=== PATIENT | male | born 1940 | race African-American/Black ===

== ENCOUNTER 2017-05-14 21:06 | Inpatient (IN) | payer OTHER ==
[~2017-05-14] VITALS: Ht 186.7 cm; Wt 81.6 kg
[2017-05-14] MEDS ORDERED: SODIUM CHLORIDE 0.9% 1,000 ML IV ONE (21:37)
[2017-05-14] MEDS ORDERED: ASPIRIN 81MG TABLET PO ONE (21:45)
[2017-05-14] MEDS ORDERED: DILTIAZEM HCL 5MG/ML 5ML VIAL IV ONE ×2 (22:30→23:45)
[2017-05-14] MEDS ORDERED: DILTIAZEM HCL 125 MG in DEXT 5% WATER 100 ML IV ONE (22:30)
[2017-05-14 22:45] LABS: *AMPHETAMINES SCREEN URINE NEGATIVE (NEGATIVE); *BARBITURATES SCREEN URINE NEGATIVE (NEGATIVE); *BENZODIAZEPINES SCREEN URINE NEGATIVE (NEGATIVE); *COCAINE SCREEN URINE NEGATIVE (NEGATIVE); CANNABINOID URINE SCREEN NEGATIVE (NEGATIVE); METHADONE URINE SCREEN NEGATIVE (NEGATIVE); OPIATES URINE SCREEN NEGATIVE (NEGATIVE); PHENCYCLIDINE URINE SCREEN NEGATIVE (NEGATIVE)
[2017-05-14] MEDS ORDERED: DILTIAZEM HCL 125 MG in SODIUM CHLORIDE 0.9% 100 ML IV NR (23:00)
[2017-05-14 23:19] LABS: BASOPHILS % 0.7 % (0.0-2.0); EOSINOPHILS % 2.4 % (0.0-5.0); HEMATOCRIT. 39.3 % (42.0-52.0); HEMOGLOBIN. 13.1 g/dL (14.0-18.0); LYMPHOCYTES % 31.1 % (20.0-50.0); MEAN CORPUSCULAR HEMOGLOBIN 29.4 pg (28.0-32.0); MEAN CORPUSCULAR VOLUME 88.4 fL (80.0-94.0); MONOCYTES % 14.8 % (2.0-8.0); PLATELET 139 x1000/uL (130-400); RED BLOOD CELL COUNT 4.44 mill/uL (4.7-6.1); RED CELL DISTRIBUTION WIDTH 14.7 % (11.6-14.6)
[2017-05-14 23:27] LABS: INR 1.1; PROTHROMBIN TIME 11.5 sec (9.4-11.6)
[2017-05-14 23:35] LABS: CARBON DIOXIDE 25 mEq/L (21-32); CHLORIDE 106 mEq/L (98-107); ETHANOL BLOOD < 10 mg/dL; TROPONIN I 0.02 ng/mL (0.00-0.04)
[2017-05-15] VITALS (24 sets, daily range): BP systolic 111–158; BP diastolic 44–94
[2017-05-15] MEDS ORDERED: SODIUM CHLORIDE 0.9% 1,000 ML IV ONE (00:41)
[2017-05-15 05:47] LABS: HEMATOCRIT. 37.7 % (42.0-52.0); HEMOGLOBIN. 12.5 g/dL (14.0-18.0); MEAN CORPUSCULAR HEMOGLOBIN 29.5 pg (28.0-32.0); MEAN CORPUSCULAR VOLUME 89.4 fL (80.0-94.0); MEAN PLATELET VOLUME 8.9 fl (7.4-10.4); PLATELET 133 x1000/uL (130-400); RED BLOOD CELL COUNT 4.22 mill/uL (4.7-6.1); RED CELL DISTRIBUTION WIDTH 14.5 % (11.6-14.6)
[2017-05-15 06:26] LABS: PHOSPHORUS 2.4 mg/dL (2.5-4.9); TROPONIN I 0.03 ng/mL (0.00-0.04)
[2017-05-15 08:20] LABS: KETONES URINE NEGATIVE (NEGATIVE); LEUKOCYTE ESTERASE URINE NEGATIVE (NEGATIVE); NITRITE URINE NEGATIVE (NEGATIVE); OCCULT BLOOD URINE NEGATIVE (NEGATIVE); PROTEIN URINE NEGATIVE (NEGATIVE); SPECIFIC GRAVITY URINE 1.011 (1.005-1.030); UROBILINOGEN URINE 0.2 E.U./dL (0.2-1.0)
[2017-05-15 08:32] LABS: CLARITY URINE CLEAR (CLEAR); COLOR URINE YELLOW (YELLOW)
[2017-05-15] MEDS: CARVEDILOL 3.125 MG TABLET PO SCH ×2 (10:36→21:39)
[2017-05-15] MEDS: ASPIRIN 81MG TABLET PO SCH (10:36)
[2017-05-15] MEDS: SODIUM CHLORIDE 0.9% 1,000 ML IV SCH ×2 (10:36→20:50)
[2017-05-15 11:15] LABS: T4 FREE 0.72 ng/dL (0.76-1.46)
[2017-05-15] MEDS ORDERED: NOREPINEPHRINE 16 MG in DEXT 5% WATER 234 ML IV PRN (11:15)
[2017-05-15] MEDS ORDERED: PHENYLEPHRINE 40 MG in DEXT 5% WATER 500 ML IV PRN (11:15)
[2017-05-15] MEDS ORDERED: IPRATROPIUM/ALBUTEROL 0.5-3(2.5)MG/3ML NEB HHN PRN (11:30)
[2017-05-15 11:39] LABS: PLATELET ESTIMATE NORMAL
[2017-05-15] MEDS: BUDESONIDE 0.5MG/2ML NEB HHN SCH ×2 (15:09→20:34)
[2017-05-15] MEDS: IPRATROPIUM/ALBUTEROL 0.5-3(2.5)MG/3ML NEB HHN SCH ×2 (15:09→20:34)
[2017-05-15 15:46] LABS: CREATINE KINASE MB FRACTION 1.3 ng/mL (0.5-3.6)
[2017-05-15] MEDS ORDERED: LIP40 PO (18:34)
[2017-05-15] MEDS ORDERED: ALBU05 NEB (18:34)
[2017-05-15] MEDS ORDERED: TIOT18CA3 INH (18:34)
[2017-05-15] MEDS ORDERED: FLUT1DIS3 IH (18:34)
[2017-05-16] VITALS (12 sets, daily range): BP systolic 130–154; BP diastolic 60–91
[2017-05-16 00:20] LABS: CREATINE KINASE MB FRACTION 1.1 ng/mL (0.5-3.6)
[2017-05-16] MEDS: IPRATROPIUM/ALBUTEROL 0.5-3(2.5)MG/3ML NEB HHN SCH ×2 (00:35→08:21)
[2017-05-16 06:06] LABS: CREATINE KINASE MB FRACTION 1.3 ng/mL (0.5-3.6)
[2017-05-16] MEDS: ASPIRIN 81MG TABLET PO SCH (08:01)
[2017-05-16] MEDS: CARVEDILOL 3.125 MG TABLET PO SCH (08:01)
[2017-05-16] MEDS: BUDESONIDE 0.5MG/2ML NEB HHN SCH (08:21)
== END 2017-05-16 10:45 | disposition home or self-care (01) | DRG 73 ==
LOC: ER 21:30 → CVICU 23:38 → EDBEDREQ 23:41 → EDBEDREQTM 23:41 → EDBEDREQSVC 23:44 → ENRESERV 05-15 → EDBEDREQ 05-15 00:33 → ER 05-15 01:53
PROVIDERS: ADMIT Internal Medicine; ATTEND Internal Medicine
DX: G90.8 Other disorders of autonomic nervous system (principal); G93.41 Metabolic encephalopathy; E86.0 Dehydration; I50.9 Heart failure, unspecified; I48.91 Unspecified atrial fibrillation; I11.0 Hypertensive heart disease with heart failure; I47.1 Supraventricular tachycardia; J44.9 Chronic obstructive pulmonary disease, unspecified; I25.10 Atherosclerotic heart disease of native coronary artery without angina pectoris; E78.5 Hyperlipidemia, unspecified; Z87.891 Personal history of nicotine dependence
CPT/HCPCS: 36415; 70450; 71010; 74176; 80048; 80053; 80061; 80305; 81003; 82550; 82553; 82962; 83036; 83735; 83880; 84100; 84439; 84443; 84484; 85025; 85379; 85610; 93005; 93970; 96361; 96374; 96375; 97162; 99291; G0482; J3490; J7030; J7050; J7060; J7620; J7626

== ENCOUNTER 2019-02-03 14:57 | Emergency (ER) | payer MEDICARE, OTHER ==
[~2019-02-03] VITALS: Ht 172.7 cm; Wt 78.0 kg
[~2019-02-03 14:57] MED LIST: ALBU05 NEB; FLUT1DIS3 IH; LIP40 PO; TIOT18CA3 INH
[2019-02-03 16:59] LABS: CHLORIDE 102 mEq/L (98-107)
[2019-02-03 17:01] LABS: BASOPHILS % 1.1 % (0.0-2.0); EOSINOPHILS % 0.3 % (0.0-5.0); HEMATOCRIT. 42.4 % (42.0-52.0); HEMOGLOBIN. 14.4 g/dL (14.0-18.0); LYMPHOCYTES % 44.2 % (20.0-50.0); MEAN CORPUSCULAR VOLUME 88.7 fL (80.0-94.0); MEAN PLATELET VOLUME 8.2 fl (7.4-10.4); MONOCYTES % 10.9 % (2.0-8.0); NEUTROPHILS % 43.5 % (40.0-76.0); PLATELET 171 x1000/uL (130-400); RED BLOOD CELL COUNT 4.78 mill/uL (4.7-6.1)
[2019-02-03 22:47] VITALS: BP 145/70
== END 2019-02-03 22:48 | disposition home or self-care (01) ==
LOC: ER 15:42
DX: J44.9 Chronic obstructive pulmonary disease, unspecified (principal); I10 Essential (primary) hypertension; E78.5 Hyperlipidemia, unspecified; Z79.899 Other long term (current) drug therapy
CPT/HCPCS: 36415; 71045; 83880; 84484; 85379; 93005; 99284

== ENCOUNTER 2020-10-13 11:31 | Emergency (ER) | payer OTHER, MEDICARE ==
[~2020-10-13] VITALS: Ht 188 cm; Wt 91.0 kg
[2020-10-13] MEDS ORDERED: METHYLPREDNISOLONE SOD SUCC 125 MG/2 ML VIAL IV STA (12:37)
[2020-10-13 14:50] LABS: BASOPHILS % 0.6 % (0.0-2.0); EOSINOPHILS % 1.1 % (0.0-5.0); HEMATOCRIT. 37.1 % (42.0-52.0); HEMOGLOBIN. 12.5 g/dL (14.0-18.0); LYMPHOCYTES % 27.6 % (20.0-50.0); MEAN CORPUSCULAR HEMOGLOBIN 30.1 pg (28.0-32.0); MEAN CORPUSCULAR VOLUME 89.7 fL (80.0-94.0); MEAN PLATELET VOLUME 7.5 fl (7.4-10.4); NEUTROPHILS % 58.7 % (40.0-76.0); PLATELET 183 x1000/uL (130-400); RED BLOOD CELL COUNT 4.13 mill/uL (4.7-6.1); RED CELL DISTRIBUTION WIDTH 14.6 % (11.6-14.6)
[2020-10-13 14:57] LABS: CHLORIDE 101 mEq/L (98-107)
[2020-10-13] MEDS ORDERED: P50 MT (15:47)
[2020-10-13 16:11] VITALS: BP 122/77
== END 2020-10-13 16:14 | disposition home or self-care (01) ==
LOC: ER 11:31
DX: J44.1 Chronic obstructive pulmonary disease with (acute) exacerbation (principal); E78.00 Pure hypercholesterolemia, unspecified; Z79.899 Other long term (current) drug therapy; Z87.891 Personal history of nicotine dependence
CPT/HCPCS: 36415; 71045; 80053; 85025; 93005; 96374; 99285; J2930

== ENCOUNTER 2021-08-15 16:18 | Emergency (ER) | payer OTHER, MEDICARE ==
[~2021-08-15] VITALS: Ht 177.8 cm; Wt 79.0 kg
[~2021-08-15 16:18] MED LIST changes: +P50 MT
[2021-08-15 17:17] LABS: BG BASE EXCESS -0.9 mmol/L (-2.0-2.0); BG CARBOXYHEMOGLOBIN 0.4 % (0.5-1.5); BG DEOXYHEMOGLOBIN 0.9 % (0.0-5.0); BG FRACTION INSPIRED OXYGEN 32; BG HCO3 ACT 17.6 mmol/L (22.0-26.0); BG METHEMOGLOBIN 0.2 % (0.0-1.5); BG OXYGEN SATURATION 99.1 % (92.0-98.5); BG OXYHEMOGLOBIN 98.5 % (94.0-97.0); BG PCO2 17.4 mmHg (35.0-45.0); BG PH 7.624 (7.350-7.450); BG PO2 137.1 mmHg (75.0-100.0); BG SAMPLE SITE RIGHT RADIAL; BG TOTAL HEMOGLOBIN 13.5 g/dL (12.0-18.0); BG VENT MODE NASAL CANNULA
[2021-08-15 18:28] LABS: EOSINOPHILS % 0.8 % (0.0-5.0); HEMATOCRIT. 38.6 % (42.0-52.0); HEMOGLOBIN. 12.6 g/dL (14.0-18.0); LYMPHOCYTES % 29.1 % (20.0-50.0); MEAN CORPUSCULAR HEMOGLOBIN 28.6 pg (28.0-32.0); MEAN CORPUSCULAR VOLUME 87.4 fL (80.0-94.0); MEAN PLATELET VOLUME 7.8 fl (7.4-10.4); MONOCYTES % 14.6 % (2.0-8.0); NEUTROPHILS % 54.5 % (40.0-76.0); PLATELET 229 x1000/uL (130-400); RED BLOOD CELL COUNT 4.42 mill/uL (4.7-6.1); RED CELL DISTRIBUTION WIDTH 15.4 % (11.6-14.6)
[2021-08-15 18:38] LABS: CHLORIDE 101 mEq/L (98-107)
[2021-08-15 18:42] LABS: ETHANOL BLOOD 62 mg/dL
[2021-08-15 18:56] LABS: *AMPHETAMINES SCREEN URINE NEGATIVE (NEGATIVE); *BARBITURATES SCREEN URINE NEGATIVE (NEGATIVE); *BENZODIAZEPINES SCREEN URINE NEGATIVE (NEGATIVE); *COCAINE SCREEN URINE NEGATIVE (NEGATIVE)
[2021-08-15 18:57] LABS: CANNABINOID URINE SCREEN NEGATIVE (NEGATIVE); METHADONE URINE SCREEN NEGATIVE (NEGATIVE); OPIATES URINE SCREEN NEGATIVE (NEGATIVE); PHENCYCLIDINE URINE SCREEN NEGATIVE (NEGATIVE)
[2021-08-15] MEDS ORDERED: ALBUTEROL (0.083%) 2.5MG/3ML NEB HHN NR (20:00)
[2021-08-15] MEDS ORDERED: METHYLPREDNISOLONE SOD SUCC 125 MG/2 ML VIAL IV NR (20:15)
[2021-08-15] MEDS ORDERED: POTASSIUM CHLORIDE 20MEQ TABLET SR PO NR (20:15)
[2021-08-15 23:13] VITALS: BP 121/57
== END 2021-08-15 23:30 | disposition short-term general hospital (02) ==
LOC: ER 16:18
DX: J44.1 Chronic obstructive pulmonary disease with (acute) exacerbation (principal); R06.00 Dyspnea, unspecified; F10.129 Alcohol abuse with intoxication, unspecified; Y90.3 Blood alcohol level of 60-79 mg/100 ml; D64.9 Anemia, unspecified; Z79.899 Other long term (current) drug therapy; Z20.822 Contact with and (suspected) exposure to COVID-19
CPT/HCPCS: 36415; 36600; 71045; 80053; 80305; 80320; 82375; 82805; 83690; 83880; 84484; 85025; 87426; 93005; 94640; 96374; 99285; J2930; Z7610; G0480

== ENCOUNTER 2022-09-04 20:13 | Emergency (ER) | payer OTHER ==
[~2022-09-04] VITALS: Ht 180.3 cm; Wt 73.0 kg
[2022-09-04 21:18] LABS: BASOPHILS % 0.5 % (0.0-2.0); EOSINOPHILS % 0.4 % (0.0-5.0); HEMATOCRIT. 41.8 % (42.0-52.0); HEMOGLOBIN. 13.7 g/dL (14.0-18.0); LYMPHOCYTES % 7.2 % (20.0-50.0); MEAN CORPUSCULAR HEMOGLOBIN 28.7 pg (28.0-32.0); MEAN CORPUSCULAR VOLUME 87.8 fL (80.0-94.0); MONOCYTES % 4.9 % (2.0-8.0); RED BLOOD CELL COUNT 4.76 mill/uL (4.7-6.1)
[2022-09-04 21:29] LABS: PROTHROMBIN TIME 10.7 sec (9.6-11.0)
[2022-09-04 21:32] LABS: CHLORIDE 94 mEq/L (98-107)
[2022-09-04 21:42] LABS: ETHANOL BLOOD < 10 mg/dL
[2022-09-04 21:56] LABS: MEAN PLATELET VOLUME 8.6 fl (7.4-10.4); PLATELET 176 x1000/uL (130-400)
[2022-09-04] MEDS ORDERED: SODIUM CHLORIDE 0.9% 1,000 ML IV ONE (22:15)
[2022-09-04] MEDS ORDERED: CEFTRIAXONE 1GM PREMIX 50 ML IV ONE (23:00)
[2022-09-04 23:25] LABS: CLARITY URINE CLOUDY (CLEAR); COLOR URINE DARK YELLOW (YELLOW); KETONES URINE 1+ (NEGATIVE); LEUKOCYTE ESTERASE URINE 2+ (NEGATIVE); NITRITE URINE NEGATIVE (NEGATIVE); OCCULT BLOOD URINE 1+ (NEGATIVE); PROTEIN URINE 2+ (NEGATIVE); SPECIFIC GRAVITY URINE 1.022 (1.005-1.030)
[2022-09-05 00:27] VITALS: BP 138/60
== END 2022-09-05 04:49 | disposition short-term general hospital (02) ==
LOC: ER 21:06
DX: S22.089A Unspecified fracture of T11-T12 vertebra, initial encounter for closed fracture (principal); R55 Syncope and collapse; N39.0 Urinary tract infection, site not specified; X58.XXXA Exposure to other specified factors, initial encounter; Y93.89 Activity, other specified; Y92.89 Other specified places as the place of occurrence of the external cause; Y99.8 Other external cause status; J44.9 Chronic obstructive pulmonary disease, unspecified; Z79.899 Other long term (current) drug therapy; Z20.822 Contact with and (suspected) exposure to COVID-19
CPT/HCPCS: 36415; 70450; 71045; 72128; 72170; 80053; 80320; 81003; 83880; 84484; 85025; 85610; 87086; 87186; 87426; 93005; 96365; 99291; C9803; J0696; J7030; G0480

== ENCOUNTER 2023-07-28 18:27 | Emergency (ER) | payer OTHER ==
[~2023-07-28] VITALS: Ht 185.4 cm; Wt 73.0 kg
[2023-07-28 20:46] LABS: BASOPHILS % 0.6 % (0.0-2.0); EOSINOPHILS % 1.9 % (0.0-5.0); HEMATOCRIT. 37.2 % (42.0-52.0); LYMPHOCYTES % 36.9 % (20.0-50.0); MEAN CORPUSCULAR HEMOGLOBIN 25.9 pg (28.0-32.0); MEAN CORPUSCULAR HGB CONC 32.3 g/dL (31.0-37.0); MEAN CORPUSCULAR VOLUME 80.1 fL (80.0-94.0); MEAN PLATELET VOLUME 7.1 fl (7.4-10.4); MONOCYTES % 13.5 % (2.0-8.0); NEUTROPHILS % 47.1 % (40.0-76.0); PLATELET 246 x1000/uL (130-400); RED BLOOD CELL COUNT 4.65 mill/uL (4.7-6.1); RED CELL DISTRIBUTION WIDTH 18.1 % (11.6-14.6); WHITE BLOOD COUNT 6.8 x1000/uL (4.5-11.0)
[2023-07-28 21:00] LABS: ALANINE AMINOTRANSFERASE < 7 IU/L (10-49); ALBUMIN 4.2 g/dL (3.2-4.8); ASPARTATE AMINOTRANSFERASE 23 IU/L (<34); BILIRUBIN TOTAL 0.2 mg/dL (0.1-1.0); CALCIUM 8.6 mg/dL (8.7-10.4); CARBON DIOXIDE 29 mEq/L (21-32); CHLORIDE 93 mEq/L (98-107); CREATININE 1.1 mg/dL (0.6-1.3); ETHANOL BLOOD 288 mg/dL (<10); GLUCOSE 97 mg/dL (70-105); POTASSIUM 4.1 mEq/L (3.5-5.1); PROTEIN TOTAL 6.9 g/dL (6.0-8.3); SODIUM 128 mEq/L (136-145); UREA NITROGEN BLOOD 6 mg/dL (9-23)
[2023-07-28] MEDS: SODIUM CHLORIDE 0.9% 1,000 ML IV ONE (23:48)
[2023-07-29 02:42] VITALS: O2SAT 95
[2023-07-29 07:30] VITALS: BP 126/68; PULSE 72; RESP 11; TEMP 98.5
== END 2023-07-29 09:53 | disposition home or self-care (01) ==
LOC: ER 18:34
DX: E87.1 Hypo-osmolality and hyponatremia (principal); J44.9 Chronic obstructive pulmonary disease, unspecified; Z79.899 Other long term (current) drug therapy; W18.39XA Other fall on same level, initial encounter; Y93.89 Activity, other specified; Y92.89 Other specified places as the place of occurrence of the external cause; Y99.8 Other external cause status
CPT/HCPCS: 80053; 80320; 85025; 36415; 71045; 70450; 96360; 96361; 99284; J7030; G0480